=== PATIENT | female | born 1975 | race African-American/Black ===

== ENCOUNTER → 2017-11-07 | Outpatient (CLI) | payer OTHER, BC | LOC: CFH 14:01 | PROVIDERS: ATTEND Obstetrics & Gynecology Maternal & Fetal Medicine | DX: Z12.31 Encounter for screening mammogram for malignant neoplasm of breast (principal) | CPT/HCPCS: 77067 ==

== ENCOUNTER → 2018-11-08 | Outpatient (CLI) | payer BC | END | disposition home or self-care (01) | LOC: CFH 13:11 | PROVIDERS: ATTEND Obstetrics & Gynecology Maternal & Fetal Medicine | DX: Z12.31 Encounter for screening mammogram for malignant neoplasm of breast (principal) | CPT/HCPCS: 77063; 77067 ==